=== PATIENT | female | born 1965 | race African-American/Black ===

== ENCOUNTER 2025-05-27 08:29 | Inpatient (IN) | payer MEDICARE, MEDICAID ==
[~2025-05-27] VITALS: Ht 162.6 cm; Wt 84.6 kg
[2025-05-27 08:45] VITALS: PULSE 72; RESP 16; O2SAT 98
--- NOTE | 2025-05-27 08:48 | ED.PDOC ---
HPI Comments 59-year-old female presents here with chest discomfort. She states it began around 7:00 p.m. last night when she was not doing much. Reports intense pain to her left chest with radiation to her back, reports sharp and stabbing pain. Positive nausea with vomiting. She states the pain lasts a few minutes and goes away. Currently her pain is in the right chest. She reports she has had a little mild cough and runny nose last few days. No history of acute coronary syndrome but she states that her father of an [place] at 42. No fever no chills. Chief Complaint: Chest Pain Time Seen by MD: 08:39 Reviewed Notes: Nurses Notes, Medications, Allergies Allergies: Coded Allergies: NO KNOWN ALLERGIES (Unverified , 05/27/25) Information Source: Patient Mode of Arrival: Ambulatory Severity: Moderate Timing: Hours Duration: Since onset Prehospital treatment: None Location: Substernal Radiation: Back Quality: Sharp, Stabbing Onset: At Rest Cardiac Risk Factors: None PE Risk Factors: None History of: None Modifying Factors: Nothing Associated Signs and Symptoms: None Past Medical History PAST MEDICAL HISTORY: High Lipids Surgical History: Denies all surgeries [employer] History: Denies all [employer] Hx Family History Family History: Unknown Social History Smoker: Non-Smoker Alcohol: Denies ETOH Use Drugs: Denies Drug Use Lives In: Home Constitutional: reports: chills; denies: diaphoresis, fatigue, fever, malaise, sweats, weakness, others EENTM: denies: blurred vision, double vision, ear bleeding, ear discharge, ear drainage, ear pain, ear ringing, eye pain, eye redness, hearing loss, mouth pain, mouth swelling, nasal discharge, nose bleeding, nose congestion, nose pain, photophobia, tearing, throat pain, throat swelling, voice changes, others Respiratory: denies: cough, hemoptysis, orthopnea, SOB at rest, shortness of breath, SOB with excertion, stridor, wheezing, others Cardiovascular: reports: chest pain; denies: dizzy spells, diaphoresis, Dyspnea on exertion, edema, irregular heart beat, left arm pain, lightheadedness, palpitations, PND, syncope, others Gastrointestinal: denies: abdomen distended, abdominal pain, blood streaked bowels, constipated, diarrhea, dysphagia, difficulty swallowing, hematemesis, melena, nausea, poor appetite, poor fluid intake, rectal bleeding, rectal pain, vomiting, others Genitourinary: denies: abnormal vagina bleeding, burning, dyspareunia, dysuria, flank pain, frequency, hematuria, incontinence, pain, , vagina discharge, urgency, others Neurological: denies: dizziness, fainting, headache, left sided numbness, left sided weakness, numbness, paresthesia, pre-existing deficit, right sided numbness, right sided weakness, seizure, speech problems, tingling, tremors, weakness, others Musculoskeletal: denies: back pain, gout, joint pain, joint swelling, muscle pain, muscle stiffness, neck pain, others Integumetry: denies: bruises, change in color, change in hair/nails, dryness, laceration, lesions, lumps, rash, wounds, others Allergic/Immunocompromised: denies: Difficulty Healing, Frequent Infections, Hives, Itching, others Hematologic/Lymphatic: denies: anemia, blood clots, easy bleeding, easy bruising, swollen glands, others Endocrine: denies: excessive hunger, excessive sweating, excessive thirst, excessive urination, flushing, intolerance to cold, intolerance to heat, unexplained weight gain, unexplained weight loss, others Psychiatric: denies: anxiety, bipolar disorder, depression, hopeless, panic disorder, schizophrenia, sleepless, suicidal, others All Other Systems: Reviewed and Negative Physical Exam General Appearance: No Apparent Distress, Normal HEENT: Normal ENT Inspection, Pharynx Normal Neck: Full Range of Motion, Non-Tender, Normal, Normal Inspection Respiratory: Chest Non-Tender, Lungs Clear, No Accessory Muscle Use, No Respiratory Distress, Normal Breath Sounds Cardiovascular: No Edema, No Murmur, No Gallop, Normal Peripheral Pulses, Regular Rate/Rhythm Breast Exam: Deferred Gastrointestinal: No Organomegaly, Non Tender, No Pulsatile Mass, Normal Bowel Sounds, Soft Genitalia: Deferred Pelvic: Deferred Rectal: Deferred Extremities: No calf tenderness, Normal capillary refill, Normal inspection, Normal range of motion, Non-tender, No pedal edema Musculoskeletal : Apperance: Normal Neurologic: Alert, boiling tub operator II-XII nml as Tested, No Motor Deficits, Normal Affect, Normal Mood, No Sensory Deficits Cerebellar Function: Normal Reflexes: Normal Skin: Dry, Normal Color, Warm Lymphatic: No Adenopathy EKG EKG #1: Comments Rate of 79, sinus rhythm, right bundle branch block no significant ST changes. EKG #2: Comments Rate of 64 sinus rhythm, right bundle-branch block left bundle branch fascicular block. Unchanged from previous EKG. Time of EKG 9:30 a.m. Was a procedure done? Was a procedure done?: No CP Differential Dx Differential Diagnosis: Other Differential Diagnosis: HTN Essential, HTN Accelerated Differential Diagnosis: Angina, Aortic dissection, Chest Wall Pain, Costochondritis, Esophageal reflux/spasm, Myocardial Infarction, Pericarditis, Pneumonia, Pneumothorax, Pulmonary Embolus X-Ray, Labs, Meds, VS Vital Signs Date Time Temp Pulse Resp B/P (MAP) Pulse Ox O2 Delivery O2 Flow Rate FiO2 05/27/25 11:44 66 16 128/67 05/27/25 11:30 61 16 134/73 (93) 100 05/27/25 11:14 69 16 121/61 05/27/25 11:12 121/61 05/27/25 10:45 65 16 121/61 (81) 98 05/27/25 10:20 116/66 05/27/25 09:30 64 05/27/25 08:45 98.3 72 16 125/48 (73) 98 98.3 05/27/25 08:45 72 16 98 Room Air* 0 21 05/27/25 08:32 79 05/27/25 08:29 98.8 66 18 116/54 (74) 100 98.8 Lab Test 05/27/25 10:30 05/27/25 09:20 Range/Units Troponin I High Sensitivity < 3 L < 3 L </=34 ng/L White Blood Count 5.8 4.4-10.8 10^3/uL Red Blood Count 4.23 4.0-5.20 10^6/uL Hemoglobin 12.4 12.2-16.2 g/dL Hematocrit 37.6 36.0-46.0 % Mean Corpuscular Volume 89.0 80.0-100.0 fL Mean Corpuscular Hemoglobin 29.4 28.0-32.0 pg Mean Corpuscular Hemoglobin Concent 33.1 32.0-36.0 g/dL Red Cell Distribution Width 13.5 11.8-14.3 % Platelet Count 180 140-450 10^3/uL Mean Platelet Volume 9.1 6.9-10.8 fL Neutrophils (%) (Auto) 64.7 37.0-80.0 % Lymphocytes (%) (Auto) 27.6 10.0-50.0 % Monocytes (%) (Auto) 5.8 0.0-12.0 % Eosinophils (%) (Auto) 1.5 0.0-7.0 % Basophils (%) (Auto) 0.4 0.0-2.0 % Neutrophils # (Auto) 3.8 1.6-8.6 10 ^3/uL Lymphocytes # (Auto) 1.6 0.4-5.4 10 ^3/uL Monocytes # (Auto) 0.3 0-1.3 10 ^3/uL Eosinophils # (Auto) 0.1 0-0.8 10 ^3/uL Basophils # (Auto) 0 0-0.2 10 ^3/uL Nucleated Red Blood Cells 0.1 % Sodium Level 144 136-145 mmol/L Potassium Level 3.7 3.5-5.1 mmol/L Chloride Level 110 H 98-107 mmol/L Carbon Dioxide Level 27 20-31 mmol/L Anion Gap 7 5-15 Blood Urea Nitrogen 13 9-23 mg/dL Creatinine 0.88 0.550-1.02 mg/dL Glomerular Filtration Rate Calc 75 >90 mL/min BUN/Creatinine Ratio 14.8 10.0-20.0 Serum Glucose 92 74-106 mg/dL Calcium Level 9.4 8.7-10.4 mg/dL Lipase 35 12-53 U/L Current Medications Medications (Trade) Dose Ordered Sig/Heidi Route Start Time Stop Time Status Last Admin Nitroglycerin (Ntrostat Sublingual) 0.4 mg ONCE ONCE SL 05/27/25 10:15 05/27/25 10:16 DC 05/27/25 10:20 Morphine Sulfate 4 mg ONCE ONCE IV 05/27/25 10:15 05/27/25 10:16 DC 05/27/25 11:14 Ondansetron HCl (Zofran) 4 mg ONCE ONCE IV 05/27/25 10:15 05/27/25 10:16 DC 05/27/25 11:13 Aspirin 162 mg ONCE ONCE PO 05/27/25 10:15 05/27/25 10:16 DC 05/27/25 10:19 [facility] [address] [facility] [address] Ph: [phone] DIAGNOSTIC IMAGING Diagnostic Imaging Report : [id number] Signed PATIENT: ISRAEL OVIEDO IACCT: [id number] UNIT: [id number] : 1965 LOC: ER ROOM / BED: / AGE / SEX: 59 / F ADM STATUS: REG ER SERVICE 2 ORDERING PHYSICIAN: CARLOS CAR MD PROCEDURE(s): CXR2 - CHEST TWO VIEWS ROUTINE REASON: Chest pain rule out pneumonia ORDER NUMBER(s): [id number], ACCESSION NUMBER(s): [id number] XY CHEST TWO VIEWS ROUTINE, HISTORY: Chest pain rule out pneumonia COMPARISON: None None TECHNICAL DATA: 2 view of the chest was obtained. FINDINGS: Lines and tubes: None Cardiomediastinal silhouette: normal Pulmonary vasculature: normal Lung expansion: normal Lung airspace: normal Lung interstitium: normal Pleura: normal Pneumothorax: no Bones: Unremarkable Other: no IMPRESSION: No acute intrathoracic abnormality. ATED BY: HAJA RUIZ MD DICTATED DATE/TIME: 05/27/25923 SIGNED BY: HAJA RUIZ MD SIGNED DATE/TIME: 05/27/25923 CC: 59-year-old female presents here with chest discomfort. At this time EKG and troponin are negative. I have ordered a CBC BMP which unremarkable. Chest x-ray unremarkable. Patient continues to have chest discomfort despite nitroglycerin. I have given him morphine IV. At this time patient would benefit from inpatient admission. Hospitalist has been contacted. Aspirin has been given in the ER. Considered possible aortic dissection however she states most of her pain is in her chest and not in her back. Additionally mediastinum does not appear enlarged on the chest x-ray. Time of 1ST Reevaluation: 09:09 Reevaluation 1ST: Unchanged Patient Education/Counseling: Diagnosis, Treatment Family Education/Counseling: No Family Present SEPSIS Sepsis Screen Date sepsis recognized/suspect: May 27, 2025 Time Sepsis recognized/suspect: 08 Recent Procedure: No On Antibiotic Therapy: No Respiratory Rate >20: No Heart Rate >90: No Temp<36 C (96.8 F) or >38.3 C: No SBP <90 or MAP <65 mmHG: No New Acute Mental Status Change: No Is the patient on CPAP, BIPAP,: No Physician Orders Chest Two Views Routine (05/27/25 08:53) Electrocardigram (05/27/25 08:59) Vital Signs Date Time Temp Pulse Resp B/P (MAP) Pulse Ox O2 Delivery O2 Flow Rate FiO2 05/27/25 11:44 66 16 128/67 05/27/25 11:30 61 16 134/73 (93) 100 05/27/25 11:14 69 16 121/61 05/27/25 11:12 121/61 05/27/25 10:45 65 16 121/61 (81) 98 05/27/25 10:20 116/66 05/27/25 09:30 64 05/27/25 08:45 98.3 72 16 125/48 (73) 98 98.3 05/27/25 08:45 72 16 98 Room Air* 0 21 05/27/25 08:32 79 05/27/25 08:29 98.8 66 18 116/54 (74) 100 98.8 Laboratory Tests Test 05/27/25 09:20 White Blood Count 5.8 10^3/uL (4.4-10.8) Medications Medications Dose Ordered Sig/Heidi Route Start Time Stop Time Status Last Admin Dose Admin Aspirin 162 mg ONCE ONCE PO 05/27/25 10:15 05/27/25 10:16 DC 05/27/25 10:19 Morphine Sulfate 4 mg ONCE ONCE IV 05/27/25 10:15 05/27/25 10:16 DC 05/27/25 11:14 Nitroglycerin 0.4 mg ONCE ONCE SL 05/27/25 10:15 05/27/25 10:16 DC 05/27/25 10:20 Ondansetron HCl 4 mg ONCE ONCE IV 05/27/25 10:15 05/27/25 10:16 DC 05/27/25 11:13 Departure 1 Departure Time of Disposition: 12:36 Impression: Primary Impression: Chest pain Qualified Codes: R07.9 - Chest pain, unspecified Disposition: 09 ADMITTED INPATIENT Admit to: Med Surg Condition: Stable Critical Care Note Critical Care Time?: No Stability Stability form required: No Heart Score Heart Score: Heart Score Response (Comments) Value History Moderate Suspicious 1 EKG Repolarization Disturb 1 Age 45-64 1 Risk Factors >3 or Hx ASHD 2 Troponin Normal limit 0 Total 5 I personally scribed for CARLOS CAR MD ([email or web address]) on 05/27/25 at 08:48. Electronically submitted by Rosalinda Cade ([email or web address]). I personally scribed for CARLOS CAR MD ([email or web address]) on 05/27/25 at 09:27. Electronically submitted by Rosalinda Cade ([email or web address]). I personally scribed for CARLOS CAR MD ([email or web address]) on 05/27/25 at 09:28. Electronically submitted by Rosalinda Cade ([email or web address]). I personally scribed for CARLOS CAR MD ([email or web address]) on 05/27/25 at 09:29. Electronically submitted by Rosalinda Cade ([email or web address]). I personally scribed for CARLOS CAR MD ([email or web address]) on 05/27/25 at 10:28. Electronically submitted by Rosalinda Cade ([email or web address]). I personally scribed for CARLOS CAR MD ([email or web address]) on 05/27/25 at 12:16. Electronically submitted by Rosalinda Cade ([email or web address]). I personally scribed for CARLOS CAR MD ([email or web address]) on 05/27/25 at 12:17. Electronically submitted by Rosalinda Cade ([email or web address]). CARLOS CAR MD May 27, 2025 08:48
--- NOTE | 2025-05-27 09:26 | DVH ---
XY CHEST TWO VIEWS ROUTINE, HISTORY: Chest pain rule out pneumonia COMPARISON: None None TECHNICAL DATA: 2 view of the chest was obtained. FINDINGS: Lines and tubes: None Cardiomediastinal silhouette: normal Pulmonary vasculature: normal Lung expansion: normal Lung airspace: normal Lung interstitium: normal Pleura: normal Pneumothorax: no Bones: Unremarkable Other: no IMPRESSION: No acute intrathoracic abnormality.
[2025-05-27 09:44] LABS: Hematocrit 37.6 % (36.0-46.0); Hemoglobin 12.4 g/dL (12.2-16.2); Mean Corpuscular Hemoglobin 29.4 pg (28.0-32.0); Mean Corpuscular Volume 89.0 fL (80.0-100.0); Nucleated Red Blood Cells % 0.1 %
[2025-05-27 10:01] LABS: Potassium 3.7 mmol/L (3.5-5.1); Sodium 144 mmol/L (136-145)
[2025-05-27 10:02] LABS: Anion Gap 7 (5-15); Carbon Dioxide 27 mmol/L (20-31)
[2025-05-27 10:03] LABS: Calcium 9.4 mg/dL (8.7-10.4)
[2025-05-27 10:04] LABS: Chloride 110 mmol/L (98-107)
[2025-05-27 10:08] LABS: BUN/Creatinine Ratio 14.8 (10.0-20.0); Blood Urea Nitrogen 13 mg/dL (9-23); Glucose 92 mg/dL (74-106)
[2025-05-27] MEDS: NITROGLYCERIN 0.4 MG SL TAB SL ONE (10:20)
[2025-05-27 10:22] LABS: Lipase 35 U/L (12-53)
[2025-05-27] MEDS: ONDANSETRON HCL 4 MG/2 ML VIAL IV ONE (11:13)
[2025-05-27] MEDS: MORPHINE SULFATE 4 MG/ML SYR/VIAL IV ONE (11:14)
[2025-05-27] MEDS ORDERED: HYDROcodone-ACET 5/325MG TAB PO PRN (14:00)
[2025-05-27] MEDS ORDERED: NITROGLYCERIN 0.4 MG SL TAB SL PRN (14:00)
[2025-05-27] MEDS ORDERED: ONDANSETRON HCL 4 MG/2 ML VIAL IV PRN (14:00)
[2025-05-27] MEDS ORDERED: MORPHINE SULFATE INJ 2 MG/ml SYRG IV PRN (14:00)
[2025-05-27] MEDS ORDERED: DULO1CAP6 PO (14:02)
[2025-05-27] MEDS ORDERED: ATOR20TA50 PO (14:02)
--- NOTE | 2025-05-27 14:04 | DVHHP2 ---
History of Present Illness Reason for Visit: CHEST PAIN History of Present Illness 59-year-old female presents to the emergency department with complaints of chest discomfort that began last night. The pain initially started in the upper back and later radiated to the anterior chest. She describes the pain as sharp and stabbing, worse when laying flat, and relieved by sitting upright. The symptoms were also associated with nausea and vomiting. She took ibuprofen at home with no relief, and the pain persisted throughout the night prompting her to seek care. She has past medical history of hyperlipidemia and neuropathy, for which she takes a statin and duloxetine, respectively. She has a strong family history of cardiovascular disease---her father at the age 42 from an [place], and her mother has congestive heart failure. She denies tobacco, alcohol, or illicit drug use. BMI is 31. In the emergency department serial troponins are negative. Chest x-ray is unremarkable. A 12-lead ECG shows normal sinus rhythm with RBBB and LPFB. Past Medical History Stated in HPI Past Surgical History Denies Family History As stated in HPI Past Social History The patient lives at home, denies smoking, alcohol or illicit drugs abuse. Review of Systems Constitutional: Yes: Malaise; No: Fever, Chills, Sweats, Weakness, Other Eyes: No: Pain, Vision change, Conjunctivae inflammation, Eyelid inflammation, Other, Redness ENT: No: Ear pain, Ear discharge, Nose pain, Nose discharge, Nose congestion, Mouth pain, Mouth swelling, Throat pain, Throat swelling, Other Respiratory: No: Cough, Dry, Shortness of breath, SOB with excertion, Wheezing, Hemoptysis, Pleuritic Pain, Sputum, Wheezing, Other Cardiovascular: Chest Pain; No: Palpitations, Orthopnea, Paroxysmal Noc. Dyspnea, Edema, Lt Headedness, Other Gastrointestinal: Nausea, Vomiting; No: Abdominal Pain, Diarrhea, Constipation, Melena, Hematochezia, Other Genitourinary: No Dysuria, No Frequency, No Incontinence, No Hematuria, No Retention, No Other Skin: No: Rash, Lesions, Jaundice, Bruising, Other Neurological: No: Weakness, Numbness, Incoordination, Change in speech, Confusion, Seizures, Other Allergies: Coded Allergies: NO KNOWN ALLERGIES (Unverified , 05/27/25) Medications Current Medications Medications Dose Ordered Sig/Heidi Route Start Time Stop Time Status Last Admin Dose Admin Sodium Chloride 1,000 ml @ 75 mls/hr [id number] IV 05/27/25 14:00 UNV Acetaminophen/ Hydrocodone Bitart 1 tab Q4HP PRN PO 05/27/25 14:00 UNV Ondansetron HCl 4 mg Q4HP PRN IV 05/27/25 14:00 UNV Enoxaparin Sodium 40 mg DAILY SC 05/28/25 10:00 UNV Acetaminophen 650 mg Q6HP PRN PO 05/27/25 14:00 UNV Morphine Sulfate 2 mg Q4HPRN PRN IV 05/27/25 14:00 UNV Nitroglycerin 0.4 mg Q5MINP PRN SL 05/27/25 14:00 UNV Atorvastatin Calcium 20 mg DAILY PO 05/28/25 10:00 UNV Patient Own Medication 2 cap DAILY PO 05/28/25 10:00 UNV Exam Vital Signs Vital Signs Date Time Temp Pulse Resp B/P (MAP) Pulse Ox O2 Delivery O2 Flow Rate FiO2 05/27/25 11:44 66 16 128/67 05/27/25 11:30 100 05/27/25 08:45 98.3 98.3 05/27/25 08:45 Room Air* 0 21 General Appearance: Alert, Oriented X3, Cooperative, mild distress HEENT: Atraumatic, PERRLA, EOMI Respiratory: Clear to auscultation, Normal air movement Cardiovascular: Regular rate, Normal S1, Normal S2, No murmurs Abdominal: Normal bowel sounds, Soft, No tenderness Extremities: No clubbing, No cyanosis, No edema, Normal pulses Skin: No rashes, No breakdown, No significant lesion Psych/Mental Status: Mental status NL Labs/Xrays Labs Test 05/27/25 10:30 05/27/25 09:20 Range/Units Troponin I High Sensitivity < 3 L </=34 ng/L White Blood Count 5.8 4.4-10.8 10^3/uL Red Blood Count 4.23 4.0-5.20 10^6/uL Hemoglobin 12.4 12.2-16.2 g/dL Hematocrit 37.6 36.0-46.0 % Mean Corpuscular Volume 89.0 80.0-100.0 fL Mean Corpuscular Hemoglobin 29.4 28.0-32.0 pg Mean Corpuscular Hemoglobin Concent 33.1 32.0-36.0 g/dL Red Cell Distribution Width 13.5 11.8-14.3 % Platelet Count 180 140-450 10^3/uL Mean Platelet Volume 9.1 6.9-10.8 fL Neutrophils (%) (Auto) 64.7 37.0-80.0 % Lymphocytes (%) (Auto) 27.6 10.0-50.0 % Monocytes (%) (Auto) 5.8 0.0-12.0 % Eosinophils (%) (Auto) 1.5 0.0-7.0 % Basophils (%) (Auto) 0.4 0.0-2.0 % Neutrophils # (Auto) 3.8 1.6-8.6 10 ^3/uL Lymphocytes # (Auto) 1.6 0.4-5.4 10 ^3/uL Monocytes # (Auto) 0.3 0-1.3 10 ^3/uL Eosinophils # (Auto) 0.1 0-0.8 10 ^3/uL Basophils # (Auto) 0 0-0.2 10 ^3/uL Nucleated Red Blood Cells 0.1 % Sodium Level 144 136-145 mmol/L Potassium Level 3.7 3.5-5.1 mmol/L Chloride Level 110 H 98-107 mmol/L Carbon Dioxide Level 27 20-31 mmol/L Anion Gap 7 5-15 Blood Urea Nitrogen 13 9-23 mg/dL Creatinine 0.88 0.550-1.02 mg/dL Glomerular Filtration Rate Calc 75 >90 mL/min BUN/Creatinine Ratio 14.8 10.0-20.0 Serum Glucose 92 74-106 mg/dL Calcium Level 9.4 8.7-10.4 mg/dL Lipase 35 12-53 U/L PROCEDURE(s): CXR2 - CHEST TWO VIEWS ROUTINE REASON: Chest pain rule out pneumonia ORDER NUMBER(s): [id number], ACCESSION NUMBER(s): [id number] XY CHEST TWO VIEWS ROUTINE, HISTORY: Chest pain rule out pneumonia COMPARISON: None None TECHNICAL DATA: 2 view of the chest was obtained. FINDINGS: Lines and tubes: None Cardiomediastinal silhouette: normal Pulmonary vasculature: normal Lung expansion: normal Lung airspace: normal Lung interstitium: normal Pleura: normal Pneumothorax: no Bones: Unremarkable Other: no IMPRESSION: No acute intrathoracic abnormality. SEPSIS Sepsis Screen Date sepsis recognized/suspect: May 27, 2025 Time Sepsis recognized/suspect: 844 Recent Procedure: No On Antibiotic Therapy: No Respiratory Rate >20: No Heart Rate >90: No Temp<36 C (96.8 F) or >38.3 C: No SBP <90 or MAP <65 mmHG: No New Acute Mental Status Change: No Is the patient on CPAP, BIPAP,: No Physician Orders Chest Two Views Routine (05/27/25 08:53) Electrocardigram (05/27/25 08:59) Admit (05/27/25 13:55) Code Status (05/27/25 13:55) 0.9% Ns 1000 Ml (05/27/25 14:00) Hydrocodone-Acet 5/325mg Tab ([place] 5/32 (05/27/25 14:00) Ondansetron Hcl (Zofran) (05/27/25 14:00) Enoxaparin Sodium (Lovenox) (05/28/25 10:00) Fall Risk Precautions In Place QSHIFT (05/27/25 13:55) Complete Blood Count (05/28/25 04:00) Comprehensive Metabolic Panel (05/28/25 04:00) Cardiac Diet-2gna,Lofat,Lochol (05/27/25 Dinner) Echo 2d Mode Cardiac Dop (05/27/25 13:55) Condition: Fair (05/27/25 13:55) Acetaminophen Tablet (Tylenol Tablet) (05/27/25 14:00) Morphine Sulfate Injection (05/27/25 14:00) Nitroglycerin Sublingual (Ntrostat Subli (05/27/25 14:00) Morphine Sulfate Injection (05/27/25 14:00) Stat Ekg For Chest Pain (05/27/25 13:55) Notify Md Of Changes From Base (05/27/25 13:55) Emergency Department Rn For 24 Hours (05/27/25 13:55) Emergency Dysrhythmia Protocol (05/27/25 13:55) Rhythm Strips Once Every Shift (05/27/25 13:55) Oxygen By Nasal Cannula (05/27/25 13:55) * Cardiology Consult (05/27/25 13:55) Erythrocyte Sedimentation Rate (05/27/25 13:55) PTPTT (05/27/25 13:55) Urinalysis (05/27/25 13:55) B-Type Natriuretic Peptide (05/27/25 13:55) Thyroid Stimulating Hormone (05/27/25 13:55) Lipid Panel (05/27/25 13:55) Hemoglobin A1c (05/27/25 13:55) Aspirin Tablet (05/28/25 10:00) Atorvastatin (Lipitor) (05/28/25 10:00) (Nf) Duloxetine Hcl (05/28/25 10:00) Vital Signs Date Time Temp Pulse Resp B/P (MAP) Pulse Ox O2 Delivery O2 Flow Rate FiO2 05/27/25 11:44 66 16 128/67 05/27/25 11:30 61 16 134/73 (93) 100 05/27/25 11:14 69 16 121/61 05/27/25 11:12 121/61 05/27/25 10:45 65 16 121/61 (81) 98 05/27/25 10:20 116/66 05/27/25 09:30 64 05/27/25 08:45 98.3 72 16 125/48 (73) 98 98.3 05/27/25 08:45 72 16 98 Room Air* 0 21 05/27/25 08:32 79 05/27/25 08:29 98.8 66 18 116/54 (74) 100 98.8 Laboratory Tests Test 05/27/25 09:20 White Blood Count 5.8 10^3/uL (4.4-10.8) Medications Medications Dose Ordered Sig/Heidi Route Start Time Stop Time Status Last Admin Dose Admin Aspirin 162 mg ONCE ONCE PO 05/27/25 10:15 05/27/25 10:16 DC 05/27/25 10:19 162 MG Morphine Sulfate 4 mg ONCE ONCE IV 05/27/25 10:15 05/27/25 10:16 DC 05/27/25 11:14 4 MG Nitroglycerin 0.4 mg ONCE ONCE SL 05/27/25 10:15 05/27/25 10:16 DC 05/27/25 10:20 0.4 MG Ondansetron HCl 4 mg ONCE ONCE IV 05/27/25 10:15 05/27/25 10:16 DC 05/27/25 11:13 4 MG Assessment/Plan Assessment/Plan # Chest pain, likely pleuritic pain #Rule out ACS--(heart score 5) * Admit to telemetry unit * Chest pain protocol--continue with aspirin and statins * Cardiology consult * Check ECHO * Check A1c, TSH, and lipid panel * Check ESR # nausea vomiting * IV fluid * Antiemetics # hyperlipidemia * Continue with atorvastatin 20 mg qd # neuropathy * Continue with duloxetine # Obesity * Lifestyle modification counseled PPI/DVT prophylaxis Medical plan discussed with patient and RN Plan discussed with: Patient My Orders Orders - MANI LEI [employer]IVE IN [employer] Procedure Category Date Status Time Admit ADMIT 05/27/25 Transmitted 13:55 Code Status CODE 05/27/25 Transmitted 13:55 0.9% Ns 1000 Ml PHA 05/27/25 Transmitted 14:00 Hydrocodone-Acet PHA 05/27/25 Transmitted 5/325mg Tab ([place] 14:00 Ondansetron Hcl PHA 05/27/25 Transmitted (Zofran) 14:00 Enoxaparin Sodium PHA 05/28/25 Transmitted (Lovenox) 10:00 Fall Risk Precautions [facility] 05/27/[address] 13:55 Complete Blood Count LAB 05/28/25 Verified 04:00 Comprehensive LAB 05/28/25 Verified Metabolic Panel 04:00 Cardiac DIET 05/27/25 Transmitted Diet-2gna,Lofat,Lochol Dinner Echo 2d Mode Cardiac US 05/27/25 Logged DOP 13:55 Condition: Fair [facility] 05/27/25 Transmitted 13:55 Acetaminophen Tablet PHA 05/27/25 Transmitted (Tylenol Tablet) 14:00 Morphine Sulfate PHA 05/27/25 Transmitted Injection 14:00 Nitroglycerin PHA 05/27/25 Transmitted Sublingual (Ntrostat 14:00 Morphine Sulfate PHA 05/27/25 Transmitted Injection 14:00 Stat Ekg For Chest [facility] 05/27/25 Transmitted Pain 13:55 Notify Of Changes [facility] 05/27/25 Transmitted From Base 13:55 Emergency Department Rn For [facility] 05/27/25 Transmitted 24 Hours 13:55 Emergency Dysrhythmia KEYLA 05/27/25 Transmitted Protocol 13:55 Rhythm Strips Once [facility] 05/27/25 Transmitted Every Shift 13:55 Oxygen By Nasal RT 05/27/25 Transmitted Cannula 13:55 * Cardiology Consult CONS 05/27/25 Transmitted 13:55 Erythrocyte LAB 05/27/25 Transmitted Sedimentation Rate 13:55 PTPTT LAB 05/27/25 Transmitted 13:55 Urinalysis LAB 05/27/25 Transmitted 13:55 B-Type Natriuretic LAB 05/27/25 Transmitted Peptide 13:55 Thyroid Stimulating LAB 05/27/25 Transmitted Hormone 13:55 Lipid Panel LAB 05/27/25 Transmitted 13:55 Hemoglobin A1c LAB 05/27/25 Transmitted 13:55 Aspirin Tablet PHA 05/28/25 Transmitted 10:00 Atorvastatin (Lipitor) PHA 05/28/25 Transmitted 10:00 (Nf) Duloxetine Hcl PHA 05/28/25 Transmitted 10:00 Date of Service: May 27, 2025 Billing Provider: MANI LEI Common Visit Codes: [id number] INP/OBS CARE (HIGH) Consultation Codes: [id number] CONSULT <45MIN MANI LEI May 27, 2025 14:04
[2025-05-27] MEDS: SODIUM CHLORIDE 0.9% 1,000 ML IV SCH (14:16)
[2025-05-27] MEDS: PANTOPRAZOLE 40 MG/10 ML VIAL INJ IV ONE (14:30)
[2025-05-27 14:31] LABS: Triglycerides 71 mg/dL (< 150)
[2025-05-27 14:39] LABS: Cholesterol 220 mg/dL (< 200); HDL Cholesterol 99 mg/dL (40-59)
[2025-05-27 15:06] LABS: INR 0.98 (0.9-1.15); Partial Thromboplastin Time 25.2 SEC (24.5-34.5); Prothrombin Time 10.4 sec (9.3-11.8)
[2025-05-27 15:58] VITALS: BP 129/64; PULSE 65; RESP 18; TEMP 97.5; O2SAT 100
[2025-05-27] MEDS: ACETAMINOPHEN 325 MG TAB PO PRN (16:25)
--- NOTE | 2025-05-27 18:06 | DVHSR ---
APPROVED REPORT EXAM: Two-dimensional and M-mode echocardiogram with Doppler and color Doppler. Blood Pressure: 128/67 mmHg INDICATION Chest Pain R/O ACS RISK FACTORS Height: 5'4", Weight: 180 DIMENSIONS LVDd4.2 (3.8-5.7cm)LA (2D)3.1 (1.9-4.0cm)Aortic Root3.1 (2.0-3.7cm) LVDs2.8 (2.5-4.0cm)LA (MM) (1.9-4.0cm)Aortic Cusp Exc1.8 (1.5-2.0cm) EF (%) 65.0 (55-70%)Rt. Atrium3.3 (1.9-4.0cm)Asc. Aorta cm IVSd0.9 (0.7-1.1cm)RV (D) (1.8-2.4cm) PWd0.9 (0.7-1.1cm) Mitral Valve MitralMitral Stenosis E wave1.16m/sMV Mean GR.mmHg A wave1.04m/sMV Peak GR.mmHg E/A ratio1.12D MVAcm2 DECEL [id number] 1/2 Tim[place] Aortic Valve Aortic ValveAortic Stenosis V11.05m/García Mean GR.2mmHg V21.06m/García Peak GR.5mmHg LVOT Diameter1.9 (1.8-2.4cm)Doppler AVA2.81cm2 Pulmonic Valve V20.89m/s Tricuspid Valve TR Velocity2.67m/s [id number] Conclusion Left ventricle: Left ventricle was normal-sized with normal systolic function. LVEF was around 65%. There was no wall motion abnormality. Diastolic function was considered normal. Right ventricle was normal-sized with normal systolic function. Both atria were normal-sized. Aortic valve was trileaflet. There was no aortic insufficiency/stenosis. There was mild mitral regu rgitation. There was mild tricuspid regurgitation. Pulmonary valve did not reveal any insufficiency . Right ventricular systolic pressure was assessed normal at 31 mm Hg. There was no pericardial effusi on. IVC was normal-sized with normal respiratory variation.
[2025-05-27 20:00] VITALS: PULSE 63
[2025-05-27 21:00] VITALS: BP 120/66; PULSE 66; RESP 17; TEMP 97.7; O2SAT 99
[2025-05-27] MEDS: MORPHINE SULFATE INJ 2 MG/ml SYRG IV PRN (21:04)
[2025-05-28] VITALS (7 sets, daily range): BP systolic 111–139; BP diastolic 62–81; PULSE 65–75; RESP 16–20; TEMP 97.2–97.8; O2SAT 97–100
[2025-05-28 05:36] LABS: Hematocrit 36.0 % (36.0-46.0); Hemoglobin 11.7 g/dL (12.2-16.2); Mean Corpuscular Hemoglobin 29.0 pg (28.0-32.0); Mean Corpuscular Volume 89.1 fL (80.0-100.0); Nucleated Red Blood Cells % 0.1 %
[2025-05-28 05:46] LABS: Albumin 3.7 g/dL (3.2-4.8); Alkaline Phosphatase 57 U/L (46-116); Anion Gap 6 (5-15); BUN/Creatinine Ratio 15.1 (10.0-20.0); Blood Urea Nitrogen 11 mg/dL (9-23); Carbon Dioxide 28 mmol/L (20-31); Glucose 88 mg/dL (74-106); Potassium 3.7 mmol/L (3.5-5.1); Sodium 144 mmol/L (136-145)
[2025-05-28 05:47] LABS: Bilirubin, Total 0.9 mg/dL (0.2-1.0)
[2025-05-28 06:00] LABS: Alanine Aminotransferase 53 U/L (7-40); Calcium 8.6 mg/dL (8.7-10.4); Chloride 110 mmol/L (98-107); Total Protein 5.5 g/dL (5.7-8.2)
[2025-05-28] MEDS: PANTOPRAZOLE 40 MG/10 ML VIAL INJ IV SCH (09:32)
[2025-05-28] MEDS: ENOXAPARIN SOD 40 MG/0.4 ML SYRINGE SC SCH (09:35)
[2025-05-28] MEDS ORDERED: ATORVASTATIN 20 MG TAB PO SCH (10:00)
--- NOTE | 2025-05-28 13:00 | ECG ---
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
[2025-05-28] MEDS ORDERED: POLYETHYLENE GLYCOL 17 GM PWDR PO PRN (14:30)
--- NOTE | 2025-05-28 17:30 | DVHPNRES ---
Progress Note Date Seen: May 28, 2025 Resident Creating Document: MARISOL PUCKETT RESIDENT Has the PT tested + for MRSA If YES, has PT been informed?: No Medical Necessity Reason Pt with a Central, PICC or Fol: No Subjective Review of Systems 59-year-old female presents to the ED with complaints of chest discomfort that began last night. The pain initially started in the upper back and later radiated to the anterior chest. The pain comes and goes. She describes the pain as sharp and stabbing, worse when laying flat, and relieved by sitting upright. The symptoms were also associated with nausea and vomiting. She took ibuprofen at home with no relief, and the pain persisted throughout the night prompting her to seek care. She has past medical history of hyperlipidemia and neuropathy, for which she takes a statin and duloxetine, respectively. She has a strong family history of cardiovascular disease---her father at the age 42 from an AK, and her mother has congestive heart failure. She denies tobacco, alcohol, or illicit drug use. BMI is 31. In the emergency department serial troponins are negative. Chest x-ray is unremarkable. A 12-lead ECG shows normal sinus rhythm with RBBB and LPFB. The patient was seen and examined on the bedside. She is alert oriented x3. Mentioned intermittent chest discomfort without any nausea and vomiting. No other active complaint this time. Objective vital signs Vital Sign Date Time Temp Pulse Resp B/P (MAP) Pulse Ox O2 Delivery O2 Flow Rate FiO2 05/28/25 09:00 97.7 67 16 137/76 (96) 100 97.7 05/28/25 08:00 Nasal Cannula* 2 28 Total Intake and Output 05/27/25 05/27/25 05/28/25 15:00 23:00 07:00 Intake Total 50 ml 250 ml Balance 50 ml 250 ml medications Current Medications Medications Dose Ordered Sig/Heidi Route Start Time Stop Time Status Last Admin Dose Admin Acetaminophen/ Hydrocodone Bitart 1 tab Q4HP PRN PO 05/27/25 14:00 Ondansetron HCl 4 mg Q4HP PRN IV 05/27/25 14:00 Enoxaparin Sodium 40 mg DAILY SC 05/28/25 10:00 05/28/25 09:35 40 MG Acetaminophen 650 mg Q6HP PRN PO 05/27/25 14:00 05/28/25 16:20 650 MG Morphine Sulfate 2 mg Q4HPRN PRN IV 05/27/25 14:00 05/28/25 05:26 2 MG Aspirin 81 mg DAILY PO 05/28/25 10:00 05/28/25 09:32 81 MG Duloxetine HCl 60 mg DAILY PO 05/28/25 10:00 Atorvastatin Calcium 20 mg DAILY PO 05/28/25 18:00 Famotidine 20 mg Q12HR PO 05/28/25 22:00 Polyethylene Glycol 17 gm DAILYPRN PRN PO 05/28/25 14:30 Examination General Appearance: Alert, Oriented X3, Cooperative, mild distress HEENT: Atraumatic, PERRLA, EOMI Respiratory: Clear to auscultation, Normal air movement Cardiovascular: Regular rate, Normal S1, Normal S2, No murmurs Abdominal: Normal bowel sounds, Soft, No tenderness Extremities: No clubbing, No cyanosis, No edema, Normal pulses Skin: No rashes, No breakdown, No significant lesion Psych/Mental Status: Mental status NL laboratory and microbiology Laboratory Tests 05/28/25 04:46 Test 05/28/25 04:46 Range/Units Serum Glucose 88 74-106 mg/dL Labs and/or images reviewed: Labs reviewed by me, Image(s) reviewed by me Problem List/Assessment/Plan Problem List/Assessment/Plan Assessment and plan: # Chest pain ruled out ACS # Chest pain likely due to costochondritis # Rule out polymyalgia rheumatica - EKG revealed sinus rhythm ,RBBB, ST-T changes, and troponins were unremarkable - Echo demonstrated EF 65% with RVSP 31 mm Hg - check ESR # Intractable nausea and vomiting likely due to viral gastroenteritis - IV fluid - Antiemetics (Maalox) # Hyperlipidemia - continue with atorvastatin 20 mg q.d. # Peripheral neuropathy - continue with duloxetine # obesity, BMI 31.7 kg/m2 - lifestyle modification counseled # marijuana use disorder - counseled patient regarding cessation of marijuana. # DVT prophylaxis - Lovenox 40 mg sc daily. Goal of care discussed with the patient for more than 18 minutes full code Plan discussed with Dr. Fu Plan discussed with: Patient, Other (RN) Date of Service: May 28, 2025 Billing Provider: DWAIN FU MD Common Visit Codes: [id number] INP/OBS CARE(HIGH) MARISOL PUCKETT May 28, 2025 17:30 DAVID HAMILTON RESIDENT May 28, 2025 19:36 DWAIN FU MD May 30, 2025 21:25
[2025-05-28 17:52] LABS: Urine Protein, UAD Negative (Negative)
[2025-05-28 17:53] LABS: Cannabinoid Screen, Urine Pos (NEGATIVE); Opiate Scree,Urine Neg (NEGATIVE)
[2025-05-28 17:54] LABS: Amphetamine Screen, Urine Neg (NEGATIVE); Barbiturate Scree,Urine Neg (NEGATIVE); Benzodiazephine Screen, Urine Neg (NEGATIVE); Cocaine Screen, Urine Neg (NEGATIVE); Phencyclidine Screen, Urine Neg (NEGATIVE)
[2025-05-28] MEDS: ATORVASTATIN 20 MG TAB PO SCH (18:39)
[2025-05-28] MEDS: FAMOTIDINE 20 MG TAB PO SCH (21:11)
[2025-05-29 05:00] VITALS: BP 128/91; PULSE 83; RESP 18; TEMP 98.1; O2SAT 94
[2025-05-29 08:00] VITALS: PULSE 70; PULSE 81; O2SAT 99
[2025-05-29 09:00] VITALS: BP 138/75; PULSE 70; RESP 18; TEMP 98; O2SAT 99
[2025-05-29] MEDS ORDERED: FAMO20TA10 PO (10:20)
--- NOTE | 2025-05-29 10:53 | DVHDSRES ---
Discharge Summary Date of Admission Resident Creating Document: MARISOL PUCKETT RESIDENT May 27, 2025 at 13:55 Date of Discharge: May 29, 2025 Admitting Diagnosis chest pain Labs/Diagnostic Data: Laboratory Results Test 05/28/25 17:00 05/28/25 04:46 05/27/25 14:38 05/27/25 10:30 Urine Color Light-yellow (Yellow) Urine Clarity Clear (Clear) Urine pH 5.5 (5.0-9.0) Urine Specific [place] 1.024 (1.001-1.035) Urine Protein Negative (Negative) Urine Ketones Negative (Negative) Urine Blood Negative /uL (Negative) Urine Nitrite Negative (Negative) Urine Bilirubin Negative (Negative) Urine Urobilinogen Normal mg/dL (Negative) Urine Leukocyte Esterase Negative /uL (Negative) Urine RBC 1 /hpf (0 - 4) Urine Microscopic WBC 2 /HPF (0-5) Urine Squamous Epithelial Cells Mod /hpf (<5) Urine Bacteria None seen /hpf (None Seen) Urine Mucus Few (None Seen) Urine Glucose Normal mg/dL (Normal) Urine Opiates Screen Neg (NEGATIVE) Urine Fentanyl Screen Neg (NEGATIVE) Urine Barbiturates Screen Neg (NEGATIVE) Urine Phencyclidine Screen Neg (NEGATIVE) Urine Amphetamines Screen Neg (NEGATIVE) Urine Benzodiazepines Screen Neg (NEGATIVE) Urine Cocaine Screen Neg (NEGATIVE) Urine Cannabinoids Screen Pos (NEGATIVE) White Blood Count 4.5 10^3/uL (4.4-10.8) Red Blood Count 4.04 10^6/uL (4.0-5.20) Hemoglobin 11.7 g/dL (12.2-16.2) Hematocrit 36.0 % (36.0-46.0) Mean Corpuscular Volume 89.1 fL (80.0-100.0) Mean Corpuscular Hemoglobin 29.0 pg (28.0-32.0) Mean Corpuscular Hemoglobin Concent 32.6 g/dL (32.0-36.0) Red Cell Distribution Width 13.4 % (11.8-14.3) Platelet Count 165 10^3/uL (140-450) Mean Platelet Volume 9.2 fL (6.9-10.8) Neutrophils (%) (Auto) 59.3 % (37.0-80.0) Lymphocytes (%) (Auto) 30.6 % (10.0-50.0) Monocytes (%) (Auto) 7.7 % (0.0-12.0) Eosinophils (%) (Auto) 1.9 % (0.0-7.0) Basophils (%) (Auto) 0.5 % (0.0-2.0) Neutrophils # (Auto) 2.7 10 ^3/uL (1.6-8.6) Lymphocytes # (Auto) 1.4 10 ^3/uL (0.4-5.4) Monocytes # (Auto) 0.3 10 ^3/uL (0-1.3) Eosinophils # (Auto) 0.1 10 ^3/uL (0-0.8) Basophils # (Auto) 0 10 ^3/uL (0-0.2) Nucleated Red Blood Cells 0.1 % Sodium Level 144 mmol/L (136-145) Potassium Level 3.7 mmol/L (3.5-5.1) Chloride Level 110 mmol/L (98-107) Carbon Dioxide Level 28 mmol/L (20-31) Anion Gap 6 (5-15) Blood Urea Nitrogen 11 mg/dL (9-23) Creatinine 0.73 mg/dL (0.550-1.02) Glomerular Filtration Rate Calc 94 mL/min (>90) BUN/Creatinine Ratio 15.1 (10.0-20.0) Serum Glucose 88 mg/dL (74-106) Calcium Level 8.6 mg/dL (8.7-10.4) Total Bilirubin 0.9 mg/dL (0.2-1.0) Aspartate Amino Transferase (AST) 109 U/L (13-40) Alanine Aminotransferase (ALT) 53 U/L (7-40) Alkaline Phosphatase 57 U/L (46-116) Total Protein 5.5 g/dL (5.7-8.2) Albumin 3.7 g/dL (3.2-4.8) Prothrombin Time 10.4 sec (9.3-11.8) Prothrombin Time INR 0.98 (0.9-1.15) Activated Partial Thromboplast Time 25.2 SEC (24.5-34.5) Troponin I High Sensitivity < 3 ng/L (</=34) Test 05/27/25 09:20 Erythrocyte Sedimentation Rate 11 mm/hr (0-20) Hemoglobin A1c 5.4 % A1C (<5.7) B-Type Natriuretic Peptide 22.52 pg/mL (0-100) Triglycerides Level 71 mg/dL (< 150) Cholesterol Level 220 mg/dL (< 200) LDL Cholesterol 105 mg/dL (< 100) HDL Cholesterol 99 mg/dL (40-59) Lipase 35 U/L (12-53) Thyroid Stimulating Hormone (TSH) 1.56 uIU/mL (0.55-4.78) Other Laboratory Tests 05/28/25 04:46 Brief Hx & Hospital Course: 59-year-old female presents here with chest discomfort. She states it began around 7:00 p.m. last night when she was not doing much. Reports intense pain to her left chest with radiation to her back, reports sharp and stabbing pain. Positive nausea with vomiting. She states the pain lasts a few minutes and goes away. Currently her pain is in the right chest. She reports she has had a little mild cough and runny nose last few days. No history of acute coronary syndrome but she states that her father of an HI at 42. No fever no chills. Patient had chest pain possibly due to heartburn vs musculoskeletal . EKG revealed normal. Echocardiogram demonstrated normal. ACS was ruled out. We have started on IV fluid and Antiemetics (Maalox) due to nausea and vomiting likely due to viral gastroenteritis. Today patient is hemodynamically stable, no sign and symptom of confusion. Patient will be discharged home with pepcid and advised to continue home medications. Recommended to follow-up with PCP in 1-2 weeks. General Appearance: Alert, Oriented X3, Cooperative, mild distress HEENT: Atraumatic, PERRLA, EOMI Respiratory: Clear to auscultation, Normal air movement Cardiovascular: Regular rate, Normal S1, Normal S2, No murmurs Abdominal: Normal bowel sounds, Soft, No tenderness Extremities: No clubbing, No cyanosis, No edema, Normal pulses Skin: No rashes, No breakdown, No significant lesion Psych/Mental Status: Mental status NL Condition at Discharge: Stable Final Diagnosis/Problems List # Chest pain ruled out ACS # Chest pain likely due to costochondritis # Rule out polymyalgia rheumatica # Intractable nausea and vomiting likely due to viral gastroenteritis # Hyperlipidemia # Peripheral neuropathy # obesity, BMI 31.7 kg/m2 # marijuana use disorder Discharge Disposition: Home SNF Discharge Will this Physician continue t: No Discharge Instruct/Medications Diet: Cardiac 2g Na,low cholest Activity: No Restrictions, As Tolerated Follow Up/Referral: Follow up with PCP in 1-2 weeks Medications: Pepcid continue other home medications Scheduled Atorvastatin Calcium (Atorvastatin Calcium), 1 TAB PO DAILY, (Reported) Duloxetine HCl (Duloxetine HCl), 2 CAP PO DAILY, (Reported) Famotidine (Pepcid Tablet), 1 TAB PO BID Discharge Statement: "Patient was advised to return to the ER or call 911 if any headaches, dizziness, shortness of breath, chest pain, abdominal pain, bleeding, fevers, or worsening of medical condition. Patient was counseled about treatment plan, medications, possible side effects, patientverbalized understanding. All questions were answered to the best of my ability. This discharge took greater then 30 minutes in planning, reviewing documentation, counseling the patient, and discussing with other team members." ASSESSMENT ASSESSMENT Assessment # Chest pain ruled out ACS # Chest pain likely due to costochondritis # Rule out polymyalgia rheumatica # Intractable nausea and vomiting likely due to viral gastroenteritis # Hyperlipidemia # Peripheral neuropathy # obesity, BMI 31.7 kg/m2 # marijuana use disorder Date of Service: May 29, 2025 Billing Provider: DWAIN FU MD Common Visit Codes: [id number]-[id number] DISCH DAY >30min MARISOL PUCKETT RESIDENT May 29, 2025 10:53 DWAIN FU MD May 30, 2025 21:39
[2025-05-29 11:40] VITALS: BP 121/61
[2025-05-29 12:37] VITALS: BP 147/76; PULSE 77; RESP 18; TEMP 98.1; O2SAT 97
--- NOTE | 2025-05-30 14:21 | ECG ---
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
== END 2025-05-29 12:38 | disposition home or self-care (01) | DRG 206 ==
LOC: ER 08:29 → OVERFLOW 13:55 → TELE-WESTW 15:52
PROVIDERS: ADMIT Student in an Organized Health Care Education/Training Program; ATTEND Student in an Organized Health Care Education/Training Program
DX: M94.0 Chondrocostal junction syndrome [Tietze] (principal); E78.5 Hyperlipidemia, unspecified; A08.4 Viral intestinal infection, unspecified; G62.9 Polyneuropathy, unspecified; I45.10 Unspecified right bundle-branch block; E66.9 Obesity, unspecified; F12.10 Cannabis abuse, uncomplicated; M35.3 Polymyalgia rheumatica; Z68.31 Body mass index [BMI] 31.0-31.9, adult; Z79.899 Other long term (current) drug therapy; Z82.49 Family history of ischemic heart disease and other diseases of the circulatory system
CPT/HCPCS: 36415; 71046; 80048; 80053; 80061; 80307; 81001; 83036; 83690; 83880; 84443; 84484; 85025; 85610; 85652; 85730; 93005; 93306; 96374; 96375; G0378; J2405; J2470